=== PATIENT | female | born 1960 | race Caucasian/White ===

== ENCOUNTER → 2017-01-31 | Outpatient (CLI) | payer BC ==
[~2017-01-31] MED LIST: ASPI1TAB83 PO; CETI10TA84 PO; HYDR25TA4 PO; [UNRECOGNIZED DRUG - CODE] PO
--- NOTE | 2017-02-01 13:55 | MAMMOGRAPHY REPORT ---
BILATERAL DIGITAL SCREENING MAMMOGRAM TOMOSYNTHESIS WITH CAD: 01/31/2017 CLINICAL HISTORY: Routine screening. Patient has no complaints. TECHNIQUE: Breast tomosynthesis in addition to standard 2D mammography was performed. Current study was also evaluated with a Computer Aided Detection (CAD) system. COMPARISON: Comparison is made to exams dated: 12/01/2015 mammogram, 11/24/2014 mammogram, 04/14/2014 m ammogram, 09/04/2013 mammogram, 08/27/2013 mammogram, and 02/28/2012 mammogram - [facility]. BREAST COMPOSITION: There are scattered areas of fibroglandular density in both breasts. FINDINGS: There is a stable metallic biopsy marker in the lateral right breast. Regional round and punctate microcalcifications in the right upper outer quadrant appear similar to prior exams. No ne w suspicious mass, architectural distortion or cluster of microcalcifications is seen. IMPRESSION: ACR BI-RADS CATEGORY 1: NEGATIVE There is no mammographic evidence of malignancy. A 1 year screening mammogram is recommended. The p atient will receive written notification of the results. Approximately 10% of breast cancers are not detected with mammography. A negative mammographic repor t should not delay biopsy if a clinically suggestive mass is present. Sunitha Garcia M.D. ay/:01/31/2017 18:02:22 Bisque Finisher: Karen MEYERS)(Clay)(BD), [facility] letter sent: Normal 1/2 BI-RADS Code: ACR BI-RADS Category 1: Negative
== END | disposition home or self-care (01) ==
LOC: C.MAMM 10:03
PROVIDERS: ATTEND Obstetrics & Gynecology
DX: Z12.31 Encounter for screening mammogram for malignant neoplasm of breast (principal)

== ENCOUNTER → 2017-03-01 | Outpatient (CLI) | payer BC | END | disposition home or self-care (01) | LOC: C.PAPS 14:21 | PROVIDERS: ATTEND Obstetrics & Gynecology | DX: Z01.419 Encounter for gynecological examination (general) (routine) without abnormal findings (principal) ==

== ENCOUNTER → 2018-02-05 | Outpatient (CLI) | payer BC ==
--- NOTE | 2018-02-06 07:38 | MAMMOGRAPHY REPORT ---
BILATERAL DIGITAL SCREENING MAMMOGRAM TOMOSYNTHESIS WITH CAD: 02/05/2018 CLINICAL HISTORY: Routine screening. TECHNIQUE: Breast tomosynthesis in addition to standard 2D mammography was performed. Current study was also evaluated with a Computer Aided Detection (CAD) system. COMPARISON: Comparison is made to exams dated: 01/31/2017 mammogram, 12/01/2015 mammogram, 11/24/2014 ma mmogram, 08/27/2013 mammogram, 02/28/2012 mammogram, and 09/21/2009 mammogram - [facility] enter. BREAST COMPOSITION: There are scattered areas of fibroglandular density in both breasts. FINDINGS: There is a stable metallic biopsy marker clip in the 9:00 middle one third of the right sea ast. Stable faint punctate and round microcalcification in the right upper outer quadrant posteriorl y. Stable nodular asymmetry in the inferior left breast. No new suspicious mass, architectural dist ortion or cluster of microcalcifications is seen. IMPRESSION: ACR BI-RADS CATEGORY 1: NEGATIVE There is no mammographic evidence of malignancy. A 1 year screening mammogram is recommended. The pa tient will receive written notification of the results. Approximately 10% of breast cancers are not detected with mammography. A negative mammographic report should not delay biopsy if a clinically suggestive mass is present. Sunitha Garcia M.D. ay/:02/05/2018 16:29:48 Marketing Regional Consultant: Thania MEYERS)(Clay), [facility] letter sent: Normal 1/2 BI-RADS Code: ACR BI-RADS Category 1: Negative
== END | disposition home or self-care (01) ==
LOC: C.MAMM 09:41
PROVIDERS: ATTEND Obstetrics & Gynecology
DX: Z12.31 Encounter for screening mammogram for malignant neoplasm of breast (principal)

== ENCOUNTER 2018-03-02 15:09 | Observation (INO) | payer BC ==
[~2018-03-02] VITALS: Ht 177.8 cm; Wt 100.7 kg
[2018-03-02] MEDS ORDERED: ASPIRIN 81 MG CHEW PO STA (15:22)
[2018-03-02] MEDS ORDERED: NITROGLYCERIN 0.4 MG SL PER TAB CHARGE SL PRN ×2 (15:30→18:15)
[2018-03-02 15:46] LABS: BASO % 0.4 %; BASO ABS # 0.02 K/uL (0-0.2); EOS % 1.9 %; HEMATOCRIT 38.6 % (37-47); HEMOGLOBIN 13.4 g/dL (12.0-16.0); IG# 0.01 K/uL (0.00-0.02); LYMPH % 39.5 %; LYMPH ABS # 2.13 K/uL (1.2-3.4); MEAN CELL VOLUME 91.5 fL (80-100); MEAN CORPUSCULAR HEMOGLOBIN 31.8 pg (25-34); MEAN CORPUSCULAR HGB CONC 34.7 g/dl (32-36); MEAN PLATELET VOLUME 8.6 fL (7.4-10.4); MONO % 7.8 %; MONO ABS # 0.42 K/uL (0.11-0.59); NEUT % 50.2 %; NEUT ABS # 2.71 K/uL (1.4-6.5); PLATELET COUNT 272 K/uL (130-400); RED CELL DISTRIBUTION WIDTH CV 12.4 % (11.5-14.5); RED CELL DISTRIBUTION WIDTH SD 41.4 fL (36.4-46.3); WHITE BLOOD COUNT 5.39 K/uL (4.8-10.8)
--- NOTE | 2018-03-02 15:55 | DIAGNOSTIC IMAGING REPORT ---
CHEST ONE VIEW PORTABLE CLINICAL HISTORY: Atypical chest pain shortness of breath COMPARISON STUDY: 09/25/2015 FINDINGS: The cardiac and mediastinal contours are normal. There is no evidence of focal pulmonary consolidation. There is no evidence of failure. No pleural effusions are visualized.[ There is left shoulder calcific tendinitis. IMPRESSION: No active disease in the chest. Electronically signed by: Hector Mckeon M.D. 03/02/2018 3:54 PM Dictated Date/Time: 03/02/2018 3:53 PM
[2018-03-02 16:12] LABS: BLOOD UREA NITROGEN 18 mg/dl (7-18); CALCIUM 8.9 mg/dl (8.5-10.1); CARBON DIOXIDE 27 mmol/L (21-32); GLUCOSE 94 mg/dl (70-99)
[2018-03-02 16:29] LABS: POTASSIUM 3.9 mmol/L (3.5-5.1); SODIUM 138 mmol/L (136-145)
[2018-03-02] MEDS ORDERED: ASPI81TA28 PO (16:32)
[2018-03-02] MEDS ORDERED: ENOXAPARIN 40 MG/0.4 ML SYR SC SCH (18:15)
[2018-03-02] MEDS ORDERED: ACETAMINOPHEN 325 MG TAB PO PRN (18:15)
[2018-03-02 18:21] VITALS: O2SAT 98
[2018-03-02 18:35] VITALS: BP 118/76; PULSE 59; TEMP 36.6; Ht 177.8 cm; Wt 100.7 kg
--- NOTE | 2018-03-02 18:35 | History and Physical ---
History & Physical Date & Time of Service: March 02, 2018 at 18:33 Chief Complaint: Chest Pain, Sob Primary Care Physician: Ashia Moncada D.OAline History of Present Illness Source: patient, clinic records, hospital records Patient is a 57yo F with a PMH of Kuhef-Lysnztzhz-Zsxmn syndrome (s/p ablation in 2000) and IBS who presents with chest pain beginning this afternoon. Patient states that she was sitting at home when she started to experience sudden, severe 9/10 chest pressure with radiation to the back and jaw. [place] like she could not catch her breath during episode. Denies lightheadedness, near syncope, diaphoresis or nausea. Came to ED for further evaluation, where she was given sublingual nitroglycerin in the ED and chest pain lessened to a 3/ 10. States that she had similar chest pain last Monday while she was picking things up around the house but it resolved spontaneously within a few hours. Denies any history of DE, CAD, diabetes or DVT/PE. Is able to exercise regularly at [employer] without chest discomfort. Endorses a similar event in 2014 and underwent an exercise stress echo, which was negative. Has not followed up with [facility] cardiology since then. + family history of DE (uncle, grandmother). Denies fever, chills, lightheadedness, headache, visual changes, sore throat, abdominal pain, nausea, vomiting, dysuria, diarrhea, constipation or LE swelling. 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 at [facility] Status: Chronic Family History FH: heart disease Social History Smoking Status: Never Smoker Alcohol Use: occasionally (1x/month) Marital Status: Housing status: lives with significant other Occupational Status: employed Immunizations History of Influenza Vaccine: Yes History of Tetanus Vaccine?: Unknown History of Pneumococcal: No History of Hepatitis B Vaccine: Yes Allergies Coded Allergies: Acetaminophen (Unverified Adverse Reaction, Severe, BOTTOMS OUT BLOOD PRESSURE PER PT, 09/25/15) Hydrocodone (Unverified Adverse Reaction, Severe, BOTTOMS OUT BLOOD PRESSURE PER PT, 09/25/15) Oxycodone (Verified Adverse Reaction, Unknown, PROJECTILE VOMITTING - PER PT, 09/25/15) Home Medications Scheduled Aspirin (Aspirin Ec), 81 MG PO DAILY Cetirizine (Zyrtec), 10 MG PO DAILY Review of Systems Ten systems reviewed and negative except as noted in the HPI. Constitutional: + fever Physical Exam Vital Signs Date Time Temp Pulse Resp B/P (MAP) Pulse Ox O2 Delivery O2 Flow Rate FiO2 03/02/18 18:21 60 18 135/90 98 03/02/18 16:24 64 18 127/84 97 Room Air 03/02/18 15:37 73 03/02/18 15:37 67 20 120/86 03/02/18 15:32 66 20 131/96 03/02/18 15:15 97 Room Air 03/02/18 15:10 36.7 73 18 152/100 99 Room Air General Appearance: WD/WN, no apparent distress Head: normocephalic, atraumatic Eyes: normal inspection, PERRL, sclerae normal ENT: normal ENT inspection, hearing grossly normal, pharynx normal Neck: supple, thyroid normal, trachea midline Respiratory/Chest: chest non-tender, lungs clear, normal breath sounds, no respiratory distress, no accessory muscle use Cardiovascular: regular rate, rhythm, no murmur, normal peripheral pulses Abdomen/GI: non tender, soft, no organomegaly Back: normal inspection Extremities/Musculoskelatal: normal inspection, no calf tenderness, no pedal edema, non-tender Neurologic/Psych: no motor/sensory deficits, alert, normal mood/affect, oriented x 3 Skin: normal color, warm/dry Diagnostics Laboratory Results Results Past 24 Hours Test 03/02/18 15:35 03/02/18 16:02 Range/Units White Blood Count 5.39 4.8-10.8 K/uL Red Blood Count 4.22 4.2-5.4 M/uL Hemoglobin 13.4 12.0-16.0 g/dL Hematocrit 38.6 37-47 % Mean Corpuscular Volume 91.5 80-100 fL Mean Corpuscular Hemoglobin 31.8 25-34 pg Mean Corpuscular Hemoglobin Concent 34.7 32-36 g/dl Platelet Count 272 130-400 K/uL Mean Platelet Volume 8.6 7.4-10.4 fL Neutrophils (%) (Auto) 50.2 % Lymphocytes (%) (Auto) 39.5 % Monocytes (%) (Auto) 7.8 % Eosinophils (%) (Auto) 1.9 % Basophils (%) (Auto) 0.4 % Neutrophils # (Auto) 2.71 1.4-6.5 K/uL Lymphocytes # (Auto) 2.13 1.2-3.4 K/uL Monocytes # (Auto) 0.42 0.11-0.59 K/uL Eosinophils # (Auto) 0.10 0-0.5 K/uL Basophils # (Auto) 0.02 0-0.2 K/uL RDW Standard Deviation 41.4 36.4-46.3 fL RDW Coefficient of Variation 12.4 11.5-14.5 % Immature Granulocyte % (Auto) 0.2 % Immature Granulocyte # (Auto) 0.01 0.00-0.02 K/uL Sodium Level 138 136-145 mmol/L Potassium Level 3.9 3.5-5.1 mmol/L Chloride Level 105 98-107 mmol/L Carbon Dioxide Level 27 21-32 mmol/L Anion Gap 6.0 3-11 mmol/L Blood Urea Nitrogen 18 7-18 mg/dl Creatinine 0.80 0.60-1.20 mg/dl Est Creatinine Clear Calc Drug Dose 97.3 ml/min Estimated GFR () 93.5 Estimated GFR (Non- 80.7 BUN/Creatinine Ratio 22.0 10-20 Random Glucose 94 70-99 mg/dl Calcium Level 8.9 8.5-10.1 mg/dl Total Creatine Kinase 111 26-192 U/L Creatine Kinase MB 1.0 0.5-3.6 ng/ml Creatine Kinase MB Ratio 0.9 0-3.0 Troponin I < 0.015 0-0.045 ng/ml D-Dimer 400 0-500 ug/L FEU Diagnostic Radiology CXR: IMPRESSION: No active disease in the chest. EKG Normal sinus rhythm at 68 bpm. Possible Left atrial enlargement. T wave inversion in V2,V3 (previously noted) No change from prior EKG Impression Assessment and Plan Patient is a 57yo F with a PMH of Owbma-Stzjfwlor-Ecuwx syndrome (s/p ablation in 2000) and IBS who presents with chest pain beginning this afternoon. Chest pain: -R/o ACS; risk factors include + family history -Initial troponin negative -EKG- no acute ST changes. T wave inversion in V2, V3 (previously noted in 2015 ) -CXR-no acute process -Trend serial cardiac enzymes -Fasting lipid panel, a1c in AM -Continue baby aspirin -Check resting echo -Repeat EKG in am -[facility] cardiology consulted Allergic rhinitis: -Cont Zyrtec DVT Ppx: SQ Lovenox Code status: FULL PCP: Billie Moncada Dispo: Observation telemetry. Plan to return home once medically stable. Patient seen in collaboration with Dr. Alvarenga. Please see addendum. Agree with above h and p. Briefly 57F with hx of monroe Parkinson diseases s/p ablation presents with chest pain severe in nature radiating to back and jaw which is relieved by nitro in er. Also had chest pain and dizziness few days back which lasted for about 4hrs. Currently resting comfortably and hemodynamically stable. Afebrile. No cough No nausea p/e Ge not in distress Cvs s1 and s2 heard no murmurs Rs cta b/l no added sounds Abd benign [employer] Advisor non focal Ext no edema no erythema. a/p Chest pain rule out ACS initial workup negative risk factors of family history and age monitor in tele echo cardio consult Resuscitation Status VTE Prophylaxis Will order VTE Prophylaxis: Yes
[2018-03-02 18:47] VITALS: BP 118/76; PULSE 60; TEMP 36.6; O2SAT 97
[2018-03-02 19:11] LABS: PTT PATIENT 24.5 SECONDS (21.0-31.0)
--- NOTE | 2018-03-02 19:42 | EMERGENCY ROOM VISIT NOTE ---
History Report prepared by Erick: King Cruz Under the Supervision of: Dr. Henri Santamaria D.O. First contact with patient: 15:12 Chief Complaint: CHEST PAIN Stated Complaint: CHEST PAIN, SOB History of Present Illness The patient is a 57 year old female who presents to the Emergency Room with complaints of constant, severe, chest pressure beginning one hour ago. The patient states she was sitting down when her symptoms began. The patient reports her pressure radiates to her back, and it feels like she cannot catch her breath. She notes she had a similar episode a week ago. The patient states she was picking things up when it started. She reports it lasted four hours and resolved after she laid down. The patient notes it feels like she needs to use the restroom even though she does not need to. She states she exercises regularly and does not experiencing chest pain. The patient denies arm pain, shoulder pain, jaw pain, cough, runny nose, nausea, vomiting, diarrhea, and taking medication for her discomfort. She also denies a history of heart disease , high cholesterol, smoking, diabetes, and issues with her aorta. The patient notes her grandmother had a history of heart disease. Source of History: patient Onset: 1 hour ago Position: chest Symptom Intensity: severe Quality: pressure Timing: constant Associated Symptoms: No nausea, No vomiting, No diarrhea Note: Associated symptoms: chest pressure radiating to her back Denies: arm pain, shoulder pain, jaw pain, runny nose Review of Systems See HPI for pertinent positives & negatives. A total of 10 systems reviewed and were otherwise negative. Past Medical & Surgical Medical Problems: (1) IBS (irritable bowel syndrome) (2) Osteoarthritis (3) Fqeuv-Flqyhfofq-Ueltt pattern Family History FH: heart disease Social History Smoking Status: Never Smoker Alcohol Use: occasionally Marital Status: Housing Status: lives with significant other Occupation Status: employed Current/Historical Medications Scheduled Aspirin (Aspirin Ec), 81 MG PO DAILY Cetirizine (Zyrtec), 10 MG PO DAILY Allergies Coded Allergies: Acetaminophen (Unverified Adverse Reaction, Severe, BOTTOMS OUT BLOOD PRESSURE PER PT, 09/25/15) Hydrocodone (Unverified Adverse Reaction, Severe, BOTTOMS OUT BLOOD PRESSURE PER PT, 09/25/15) Oxycodone (Verified Adverse Reaction, Unknown, PROJECTILE VOMITTING - PER PT, 09/25/15) Physical Exam Vital Signs Date Time Temp Pulse Resp B/P (MAP) Pulse Ox O2 Delivery O2 Flow Rate FiO2 03/02/18 16:24 64 18 127/84 97 Room Air 03/02/18 15:37 73 03/02/18 15:37 67 20 120/86 03/02/18 15:32 66 20 131/96 03/02/18 15:15 97 Room Air 03/02/18 15:10 36.7 73 18 152/100 99 Room Air Physical Exam GENERAL: Sitting up in bed, alert, disheveled, minimal distress, non-toxic EYE EXAM: normal conjunctiva. OROPHARYNX: no exudate, no erythema, lips, buccal mucosa, and tongue normal and mucous membranes are moist NECK: supple, no nuchal rigidity, no adenopathy, non-tender LUNGS: Clear to auscultation. Normal chest wall mechanics HEART: no murmurs, S1 normal and S2 normal ABDOMEN: abdomen soft, non-tender, normo-active bowel sounds, no masses, no rebound or guarding. BACK: Back is symmetrical on inspection and there is no deformity, no midline tenderness, no CVA tenderness. SKIN: no rashes and no bruising UPPER EXTREMITIES: upper extremities are grossly normal. Radial pulses equal bilaterally. LOWER EXTREMITIES: No pitting edema. Calves equal bilaterally. NEURO EXAM: Normal sensorium, cranial nerves II-XII grossly intact, normal speech, no gross weakness of arms, no gross weakness of legs. Medical Decision & Procedures ER Provider Diagnostic Interpretation: Radiology results as stated below per my review and the radiologist's interpretation: CHEST ONE VIEW PORTABLE CLINICAL HISTORY: Atypical chest pain shortness of breath COMPARISON STUDY: 09/25/2015 FINDINGS: The cardiac and mediastinal contours are normal. There is no evidence of focal pulmonary consolidation. There is no evidence of failure. No pleural effusions are visualized.[ There is left shoulder calcific tendinitis. IMPRESSION: No active disease in the chest. Electronically signed by: Hector Mckeon M.D. 03/02/2018 3:54 PM Dictated Date/Time: 03/02/2018 3:53 PM Laboratory Results 03/02/18 15:35 Red Blood Count 4.22, Mean Corpuscular Volume 91.5, Mean Corpuscular Hemoglobin 31.8, Mean Corpuscular Hemoglobin Concent 34.7, Mean Platelet Volume 8.6, Neutrophils (%) (Auto) 50.2, Lymphocytes (%) (Auto) 39.5, Monocytes (%) (Auto) 7.8, Eosinophils (%) (Auto) 1.9, Basophils (%) (Auto) 0.4, Neutrophils # (Auto) 2.71, Lymphocytes # (Auto) 2.13, Monocytes # (Auto) 0.42, Eosinophils # (Auto) 0.10, Basophils # (Auto) 0.02 03/02/18 15:35 Test 03/02/18 15:35 03/02/18 16:02 White Blood Count 5.39 K/uL (4.8-10.8) Red Blood Count 4.22 M/uL (4.2-5.4) Hemoglobin 13.4 g/dL (12.0-16.0) Hematocrit 38.6 % (37-47) Mean Corpuscular Volume 91.5 fL (80-100) Mean Corpuscular Hemoglobin 31.8 pg (25-34) Mean Corpuscular Hemoglobin Concent 34.7 g/dl (32-36) Platelet Count 272 K/uL (130-400) Mean Platelet Volume 8.6 fL (7.4-10.4) Neutrophils (%) (Auto) 50.2 % Lymphocytes (%) (Auto) 39.5 % Monocytes (%) (Auto) 7.8 % Eosinophils (%) (Auto) 1.9 % Basophils (%) (Auto) 0.4 % Neutrophils # (Auto) 2.71 K/uL (1.4-6.5) Lymphocytes # (Auto) 2.13 K/uL (1.2-3.4) Monocytes # (Auto) 0.42 K/uL (0.11-0.59) Eosinophils # (Auto) 0.10 K/uL (0-0.5) Basophils # (Auto) 0.02 K/uL (0-0.2) RDW Standard Deviation 41.4 fL (36.4-46.3) RDW Coefficient of Variation 12.4 % (11.5-14.5) Immature Granulocyte % (Auto) 0.2 % Immature Granulocyte # (Auto) 0.01 K/uL (0.00-0.02) Anion Gap 6.0 mmol/L (3-11) Est Creatinine Clear Calc Drug Dose 97.3 ml/min Estimated GFR () 93.5 Estimated GFR (Non- 80.7 BUN/Creatinine Ratio 22.0 (10-20) Calcium Level 8.9 mg/dl (8.5-10.1) Total Creatine Kinase 111 U/L (26-192) Creatine Kinase MB 1.0 ng/ml (0.5-3.6) Creatine Kinase MB Ratio 0.9 (0-3.0) Troponin I < 0.015 ng/ml (0-0.045) Prothrombin Time 10.0 SECONDS (9.0-12.0) Prothromb Time International Ratio 1.0 (0.9-1.1) Activated Partial Thromboplast Time 24.5 SECONDS (21.0-31.0) Partial Thromboplastin Ratio 0.9 D-Dimer 400 ug/L FEU (0-500) Laboratory results per my review. Medications Administered Medications (Trade) Dose Ordered Sig/Oziel Route Start Time Stop Time Status Last Admin Dose Admin Aspirin (Aspirin Chew) 324 mg NOW STAT PO 03/02/18 15:22 03/02/18 15:24 DC 03/02/18 15:33 324 MG Nitroglycerin (Nitrostat Tab) 0.4 mg Q5M PRN SL 03/02/18 15:30 03/02/18 18:46 DC 03/02/18 15:32 0.4 MG ECG Per My Interpretation Indication: chest pain Rate (beats per minute): 68 Rhythm: sinus rhythm Findings: T-wave inversion (Septal), other (T-wave flattening in the anterior leads. Normal axis.) Comparison ECG Date: 09/25/15 Change: no significant change ED Course ED COURSE: Vital signs were reviewed and showed normal vitals. The patients medical record was reviewed The above diagnostic studies were performed and reviewed. ED treatments and interventions as stated above. 1518: The patient was evaluated in room B03B. A complete history and physical examination was performed. 1522: Ordered Aspirin 324mg PO 1530: Ordered Nitroglycerin 0.4mg SL 1628: I reevaluated the patient. Her chest pain has resolved. I discussed her current test results. 1652: Upon reevaluation, the patient is resting comfortably. I discussed my findings with the patient and she understands and agrees with the treatment plan. 1655: I discussed the patient's case with Consuelo Hudson PA-C, [facility]. The patient will be evaluated for further management and care. Based on the patients age, coexisting illnesses, exam and lab findings the decision to treat as an inpatient was made. The patient remained stable while under my care. The patient will be evaluated for further management. Medical Decision Differential diagnoses includes but is not limited to acute coronary syndrome, myocardial infarction, pericarditis, pulmonary embolus, aortic dissection, pneumonia, pneumothorax, musculoskeletal, shingles, esophageal. Patient is a 57-year-old female who presents the ER for chest pain which started around 1:30 PM today associated with left jaw pain and shortness of breath. Pain was relieved with nitroglycerin in the ER and aspirin. IV was established and CBC along with BMP and troponin was negative. D-dimer was negative. Chest x-ray unremarkable. EKG was unchanged from previous. Patient was pain-free and due to her presentation I recommended observation. She was agreeable. Discussed with hospitalist and she will be observed overnight for further workup. She was admitted chest pain-free. Medication Reconcilliation Current Medication List: was personally reviewed by me Blood Pressure Screening Patient's blood pressure: Normal blood pressure Blood pressure disposition: Did not require urgent referral Consults Time Called: 1646 Consulting Physician: Consuelo Hudson PA-C, [facility] Returned Call: [phone] I discussed the patient's case with Consuelo Hudson PA-C, [facility]. The patient will be evaluated for further management and care. Impression Primary Impression: Precordial chest pain Scribe Attestation The scribe's documentation has been prepared under my direction and personally reviewed by me in its entirety. I confirm that the note above accurately reflects all work, treatment, procedures, and medical decision making performed by me. Departure Information Dispostion Being Evaluated By Hospitalist Referrals Ashia Moncada D.O. (PCP) Patient Instructions My [facility]
[2018-03-02 23:58] VITALS: BP 108/66; PULSE 60; TEMP 36.9; O2SAT 97
[2018-03-03 03:20] VITALS: BP 106/69; PULSE 67; TEMP 36.5; O2SAT 95
[2018-03-03 06:48] LABS: HEMATOCRIT 38.6 % (37-47); HEMOGLOBIN 13.2 g/dL (12.0-16.0); MEAN CELL VOLUME 91.5 fL (80-100); MEAN CORPUSCULAR HEMOGLOBIN 31.3 pg (25-34); MEAN CORPUSCULAR HGB CONC 34.2 g/dl (32-36); MEAN PLATELET VOLUME 8.5 fL (7.4-10.4); PLATELET COUNT 282 K/uL (130-400); RED CELL DISTRIBUTION WIDTH CV 12.2 % (11.5-14.5); RED CELL DISTRIBUTION WIDTH SD 41.3 fL (36.4-46.3); WHITE BLOOD COUNT 4.71 K/uL (4.8-10.8)
[2018-03-03 06:59] VITALS: BP 124/84; PULSE 56; TEMP 36.5; O2SAT 97
[2018-03-03 07:25] LABS: CALCIUM 8.7 mg/dl (8.5-10.1); CREATININE 0.86 mg/dl (0.60-1.20); POTASSIUM 4.1 mmol/L (3.5-5.1)
[2018-03-03] MEDS ORDERED: CETIRIZINE HCL 10 MG TAB PO SCH (09:00)
[2018-03-03] MEDS ORDERED: ASPIRIN 81 MG ECTAB PO SCH (09:00)
--- NOTE | 2018-03-03 09:00 | Progress Note ---
Subjective Date of Service: March 03, 2018. Subjective Pt evaluation today including: conversation w/ patient, physical exam, lab review, review of studies, review of inpatient medication list Saw/examined the patient in room 221 She states that she had chest pain, substernally with radiation to her back and jaw on admission This was her second episode this past week which prompted her to come to the ED Since received SL nitro in the ED, the chest pain has resolved and not recurred Currently, no symptoms and feeling fine. Problem List Medical Problems: (1) Precordial chest pain Status: Acute Review of Systems Constitutional: No weakness Respiratory: No cough, No sputum, No wheezing, No shortness of breath, No dyspnea on exertion, No dyspnea at rest, No hemoptysis Cardiac: No chest pain, No edema, No palpitations Abdomen: No pain, No nausea, No vomiting, No diarrhea, No constipation, No GI bleeding Medications Current Inpatient Medications Medications (Trade) Dose Ordered Sig/Oziel Route Start Time Stop Time Status Last Admin Dose Admin Acetaminophen (Tylenol Tab) 650 mg Q4H PRN PO 03/02/18 18:15 04/01/18 18:14 Nitroglycerin (Nitrostat Tab) 0.4 mg UD PRN SL 03/02/18 18:15 04/01/18 18:14 Aspirin (Ecotrin Tab) 81 mg DAILY PO 03/03/18 09:00 04/02/18 08:59 Cetirizine HCl (zyrTEC TAB) 10 mg DAILY PO 03/03/18 09:00 04/02/18 08:59 Enoxaparin Sodium (Lovenox Inj) 40 mg Q24H SC 03/03/18 18:15 04/01/18 18:14 Objective Vital Signs Date Time Temp Pulse Resp B/P (MAP) Pulse Ox O2 Delivery O2 Flow Rate FiO2 03/03/18 06:59 36.5 56 18 124/84 (97) 97 Room Air 03/03/18 03:20 36.5 67 18 106/69 (81) 95 Room Air 03/03/18 00:26 Room Air 03/02/18 23:58 36.9 60 17 108/66 (80) 97 Room Air 03/02/18 18:47 36.6 60 18 118/76 (90) 97 Room Air 03/02/18 18:35 36.6 59 18 118/76 Room Air 03/02/18 18:21 60 18 135/90 98 03/02/18 16:24 64 18 127/84 97 Room Air 03/02/18 15:37 73 03/02/18 15:37 67 20 120/86 03/02/18 15:32 66 20 131/96 03/02/18 15:15 97 Room Air 03/02/18 15:10 36.7 73 18 152/100 99 Room Air Physical Exam General Appearance: no apparent distress Respiratory/Chest: chest non-tender, lungs clear, normal breath sounds, no respiratory distress, no accessory muscle use Cardiovascular: regular rate, rhythm, no edema, no gallop, no JVD, no murmur Abdomen: normal bowel sounds, non tender, soft Extremities: normal range of motion, non-tender, normal inspection, no pedal edema, no calf tenderness Neurologic/Psychiatric: no motor/sensory deficits, alert, normal mood/affect Skin: normal color, warm/dry, no rash Lymphatic: no adenopathy Laboratory Results Last 24 Hours Test 03/02/18 15:35 03/02/18 16:02 03/03/18 06:27 White Blood Count 5.39 K/uL 4.71 K/uL Red Blood Count 4.22 M/uL 4.22 M/uL Hemoglobin 13.4 g/dL 13.2 g/dL Hematocrit 38.6 % 38.6 % Mean Corpuscular Volume 91.5 fL 91.5 fL Mean Corpuscular Hemoglobin 31.8 pg 31.3 pg Mean Corpuscular Hemoglobin Concent 34.7 g/dl 34.2 g/dl Platelet Count 272 K/uL 282 K/uL Mean Platelet Volume 8.6 fL 8.5 fL Neutrophils (%) (Auto) 50.2 % Lymphocytes (%) (Auto) 39.5 % Monocytes (%) (Auto) 7.8 % Eosinophils (%) (Auto) 1.9 % Basophils (%) (Auto) 0.4 % Neutrophils # (Auto) 2.71 K/uL Lymphocytes # (Auto) 2.13 K/uL Monocytes # (Auto) 0.42 K/uL Eosinophils # (Auto) 0.10 K/uL Basophils # (Auto) 0.02 K/uL RDW Standard Deviation 41.4 fL 41.3 fL RDW Coefficient of Variation 12.4 % 12.2 % Immature Granulocyte % (Auto) 0.2 % Immature Granulocyte # (Auto) 0.01 K/uL Sodium Level 138 mmol/L 139 mmol/L Potassium Level 3.9 mmol/L 4.1 mmol/L Chloride Level 105 mmol/L 107 mmol/L Carbon Dioxide Level 27 mmol/L 26 mmol/L Anion Gap 6.0 mmol/L 6.0 mmol/L Blood Urea Nitrogen 18 mg/dl 16 mg/dl Creatinine 0.80 mg/dl 0.86 mg/dl Est Creatinine Clear Calc Drug Dose 97.3 ml/min 90.5 ml/min Estimated GFR () 93.5 85.7 Estimated GFR (Non- 80.7 73.9 BUN/Creatinine Ratio 22.0 18.3 Random Glucose 94 mg/dl 91 mg/dl Calcium Level 8.9 mg/dl 8.7 mg/dl Total Creatine Kinase 111 U/L Creatine Kinase MB 1.0 ng/ml Creatine Kinase MB Ratio 0.9 Troponin I < 0.015 ng/ml Prothrombin Time 10.0 SECONDS Prothromb Time International Ratio 1.0 Activated Partial Thromboplast Time 24.5 SECONDS Partial Thromboplastin Ratio 0.9 D-Dimer 400 ug/L FEU Triglycerides Level 112 mg/dl Cholesterol Level 250 mg/dl HDL Cholesterol 66 mg/dl LDL Cholesterol, Calculated 162 mg/dl VLDL Cholesterol, Calculated 22 mg/dl Cholesterol/HDL Ratio 3.8 Assessment and Plan This is a 57 year old female with a past medical history of Caren-Parkinson- White syndrome s/p ablation, allergic rhinitis, IBS - presents with chest pain Chest Pain r/o ACS - patient with substernal chest pain, radiating to back/jaw - cardiac enzymes negative x2 thus far, EKG with no ST-T wave changes - echo is pending - cardiology consultation pending - has had stress test in the past (2014), which was negative DVT ppx - Lovenox FULL CODE
[2018-03-03 11:35] VITALS: BP 109/68; PULSE 58; TEMP 37.1; O2SAT 98
--- NOTE | 2018-03-03 12:05 | Cardiology Consultation ---
Cardiology Consultation Date of Consultation: March 03, 2018. 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 She has had no recurrence but occasionally describes a "skipped heartbeat". She presented in September 2015 at which time she was having recurrent episodes of substernal chest discomfort with radiation to the neck and her jaw. She had T-wave inversion in the precordial leads but her cardiac enzymes were negative and a stress echo was performed on September 26, 2015. She exercised for 5 minutes on the Son protocol achieving 93% of her predicted maximal heart rate and without chest discomfort. The echo images were negative for ischemia. She had no recurrence until last week. Last week and the day of her presentation here this admission she had substernal chest pressure with radiation to her neck and jaw. 1 week ago it lasted about 4 hours, she thinks it lasted several hours this admission and gradually subsided after receiving nitroglycerin. She had no lightheadedness or dizziness or palpitations with it. She was not short of breath. She spent the winter in [facility] [place] and was hiking and exerting herself fairly strenuously and had no substernal chest discomfort. So far her enzymes have been negative (2 sets) and her electrocardiogram is unchanged from before. She has had no recurrence of her symptoms. Past Medical/Surgical History (1) Xvhqb-Pzuchxvjf-Nxcuj pattern (2) Osteoarthritis (3) IBS (irritable bowel syndrome) Family History FH: heart disease Social History Smoking Status: Never Smoker History of Alcohol Use: Yes (once a month) Review of Systems Constitutional: No fever, No weight loss, No weakness Respiratory: No cough, No sputum, No wheezing, No shortness of breath, No dyspnea on exertion, No dyspnea at rest, No hemoptysis Cardiac: + see HPI, + chest pain, No edema, No palpitations Abdomen: No pain, No nausea, No vomiting, No diarrhea, No GI bleeding Female : No problem reported Neurologic: No paralysis, No weakness, No numbness/tingling, No balance problems Heme: No abnormal bleeding/bruising, No clotting problems Endo: No fatigue Skin: No problem reported All Other Systems: Reviewed and Negative Allergies Coded Allergies: Acetaminophen (Unverified Adverse Reaction, Severe, BOTTOMS OUT BLOOD PRESSURE PER PT, 09/25/15) Hydrocodone (Unverified Adverse Reaction, Severe, BOTTOMS OUT BLOOD PRESSURE PER PT, 09/25/15) Oxycodone (Verified Adverse Reaction, Unknown, PROJECTILE VOMITTING - PER PT, 09/25/15) Medications Current Inpatient Medications Medications (Trade) Dose Ordered Sig/Oziel Route Start Time Stop Time Status Last Admin Dose Admin Acetaminophen (Tylenol Tab) 650 mg Q4H PRN PO 03/02/18 18:15 04/01/18 18:14 Nitroglycerin (Nitrostat Tab) 0.4 mg UD PRN SL 03/02/18 18:15 04/01/18 18:14 Aspirin (Ecotrin Tab) 81 mg DAILY PO 03/03/18 09:00 04/02/18 08:59 Cetirizine HCl (zyrTEC TAB) 10 mg DAILY PO 03/03/18 09:00 04/02/18 08:59 Enoxaparin Sodium (Lovenox Inj) 40 mg Q24H SC 03/03/18 18:15 04/01/18 18:14 Physical Exam Vital Signs Past 12 Hours Date Time Temp Pulse Resp B/P (MAP) Pulse Ox O2 Delivery O2 Flow Rate FiO2 03/03/18 11:35 37.1 58 20 109/68 (82) 98 Room Air 03/03/18 06:59 36.5 56 18 124/84 (97) 97 Room Air 03/03/18 03:20 36.5 67 18 106/69 (81) 95 Room Air 03/03/18 00:26 Room Air Constitutional: General Apperance: heathly-appearing Level of Distress: NAD Psychiatric: Mental Status: active & alert Head: normocephalic Eyes: EOM: EOMI ENMT: normal ENT inspection, hearing grossly normal Neck: supple, no masses Lungs: Respiratory effort: no dyspnea, good air movement Auscultation: breath sounds normal, no wheezing Cardiovascular: Heart Auscultation: RRR, no murmurs, no rubs, no gallops Peripheral Pulses: Bruits: none appreciated Abdomen: Bowel Sounds: normal Inspection & Palpation: soft, no tenderness, guarding & rebound, no masses Musculoskeletal: normal strength (5/5 throughout) Extremities: no edema Neurologic: Cranial Nerves: grossly intact Sensation: grossly intact Data Laboratory Results: Last 24 Hours Test 03/02/18 15:35 03/02/18 16:02 03/03/18 06:27 White Blood Count 5.39 K/uL 4.71 K/uL Red Blood Count 4.22 M/uL 4.22 M/uL Hemoglobin 13.4 g/dL 13.2 g/dL Hematocrit 38.6 % 38.6 % Mean Corpuscular Volume 91.5 fL 91.5 fL Mean Corpuscular Hemoglobin 31.8 pg 31.3 pg Mean Corpuscular Hemoglobin Concent 34.7 g/dl 34.2 g/dl Platelet Count 272 K/uL 282 K/uL Mean Platelet Volume 8.6 fL 8.5 fL Neutrophils (%) (Auto) 50.2 % Lymphocytes (%) (Auto) 39.5 % Monocytes (%) (Auto) 7.8 % Eosinophils (%) (Auto) 1.9 % Basophils (%) (Auto) 0.4 % Neutrophils # (Auto) 2.71 K/uL Lymphocytes # (Auto) 2.13 K/uL Monocytes # (Auto) 0.42 K/uL Eosinophils # (Auto) 0.10 K/uL Basophils # (Auto) 0.02 K/uL RDW Standard Deviation 41.4 fL 41.3 fL RDW Coefficient of Variation 12.4 % 12.2 % Immature Granulocyte % (Auto) 0.2 % Immature Granulocyte # (Auto) 0.01 K/uL Sodium Level 138 mmol/L 139 mmol/L Potassium Level 3.9 mmol/L 4.1 mmol/L Chloride Level 105 mmol/L 107 mmol/L Carbon Dioxide Level 27 mmol/L 26 mmol/L Anion Gap 6.0 mmol/L 6.0 mmol/L Blood Urea Nitrogen 18 mg/dl 16 mg/dl Creatinine 0.80 mg/dl 0.86 mg/dl Est Creatinine Clear Calc Drug Dose 97.3 ml/min 90.5 ml/min Estimated GFR () 93.5 85.7 Estimated GFR (Non- 80.7 73.9 BUN/Creatinine Ratio 22.0 18.3 Random Glucose 94 mg/dl 91 mg/dl Calcium Level 8.9 mg/dl 8.7 mg/dl Total Creatine Kinase 111 U/L Creatine Kinase MB 1.0 ng/ml Creatine Kinase MB Ratio 0.9 Troponin I < 0.015 ng/ml < 0.015 ng/ml Prothrombin Time 10.0 SECONDS Prothromb Time International Ratio 1.0 Activated Partial Thromboplast Time 24.5 SECONDS Partial Thromboplastin Ratio 0.9 D-Dimer 400 ug/L FEU Triglycerides Level 112 mg/dl Cholesterol Level 250 mg/dl HDL Cholesterol 66 mg/dl LDL Cholesterol, Calculated 162 mg/dl VLDL Cholesterol, Calculated 22 mg/dl Cholesterol/HDL Ratio 3.8 Imaging: Echocardiogram was performed and results are pending EKG: Electrocardiogram shows sinus rhythm with T-wave inversion V1 and V2, this can be normal and this is similar to prior electrocardiograms Telemetry reviewed: Sinus rhythm, no significant arrhythmia Assessment & Plan 1. Chest discomfort: I doubt very much that her chest discomfort is cardiac despite the fact that the description is consistent with angina. The duration was quite long to not have any electrocardiographic or enzyme findings, she is very active and was hiking over the winter and had no exertional symptoms even at altitude. She has had negative stress echo in the past for similar symptoms. I would continue for the 3 sets of enzymes, and make sure the echo does not show wall motion abnormalities however I would not recommend any further evaluation if these things are negative. I do not think I would do another stress test unless the symptoms become exertional. I would consider other etiologies, such as esophageal spasm, etc. if the symptoms continue. 2. WPW: She has a history of WPW and ablation, her electric cardiogram does not show preexcitation and she does not have any symptoms to suggest recurrent SVT. She describes skipped heartbeats which are probably premature beats and are not bothersome to her. Thank you for allowing me to participate in her care.
--- NOTE | 2018-03-03 13:30 | ECHOCARDIOGRAM REPORT ---
*NOTICE TO RECEIVING CONSTITUTION PARTY AGENCY This information is strictly Confidential and protected under [place] law. [place] law prohibits you from making any further disclosure of this information unless further disclosure is expressly permitted by the written consent of the person to whom it pertains or is authorized by law. A general authorization for the release of medical or other information is not sufficient for this purpose. Hospital accepts no responsibility if the information is made available to any other person, INCLUDING THE PATIENT. Interpretation Summary * Name: ALCIDES WHEAT Study Date: 03/03/2018 07:27 AM BP: 106/69 mmHg * Patient Location: 221 HR: 56 * : 1960 (M/d/yyyy) Gender: Female Height: 70 in * Age: 57 yrs Ethnicity: CA Weight: 222 lb * Referring Physician: Eleni Bell PA-C * Performed By: Edu Salgado RDCS * * Reason For Study: Chest pain * BSA: 2.2 m2 * The study was technically adequate. * -- Conclusions -- * No regional wall motion abnormalities noted. * Left ventricular systolic function is normal. * The LV Ejection Fraction = 55-60%. * The right ventricle is normal in size and function. * Trace aortic valve regurgitation is present. Procedure Details * A complete two-dimensional transthoracic echocardiogram was performed (2D, M-mode, Doppler and color flow Doppler). * The study was technically adequate. Left Ventricle * The left ventricle is normal in size. * There is normal left ventricular wall thickness. * Left ventricular systolic function is normal. * Ejection Fraction = 55-60%. * The left ventricular wall motion is normal. * No regional wall motion abnormalities noted. Right Ventricle * The right ventricle is normal in size and function. * The right ventricular systolic function is normal as assessed by tricuspid annular plane systolic excursion (TAPSE) (normal >1.5 cm). Atria * The left atrial size is normal. * Right atrial size is normal. * There is no evidence of atrial septal defect, but resolution does not allow assessment for a patent foramen ovale. Mitral Valve * The mitral valve is normal. * There is no mitral valve stenosis. * Significant mitral regurgitation is absent. Tricuspid Valve * The tricuspid valve is normal. * There is no tricuspid stenosis. * Significant tricuspid regurgitation is absent. Aortic Valve * The aortic valve is trileaflet. * Aortic stenosis is absent. * Trace aortic regurgitation. Pulmonic Valve * The pulmonary valve is not well seen, but the Doppler examination is normal without significant regurgitation or stenosis. Great Vessels * The aortic root and proximal ascending aorta are normal sized. Pericardium/Pleural * There is no pericardial effusion. Great Vessels * Normal inferior vena cava diameter and respiratory variation suggests normal central venous pressure. Left Ventricular Diastolic Function * Left ventricular diastolic function is normal. MMode 2D Measurements and Calculations IVSd 1.0 cm IVSs 1.7 cm LVIDd 5.2 cm LVIDs 2.9 cm LVPWd 1.0 cm LVPWs 1.6 cm IVS/LVPW 1.0 FS 44.1 % EDV(Teich) 132.1 ml ESV(Teich) 33.1 ml EF(Teich) 74.9 % EDV(cubed) 144.2 ml ESV(cubed) 25.2 ml EF(cubed) 82.5 % % IVS thick 61.8 % % LVPW thick 57.1 % LV mass(C)d 205.3 grams LV mass(C)dI 94.1 grams/m\S\2 LV mass(C)s 180.1 grams LV mass(C)sI 82.6 grams/m\S\2 SV(Teich) 99.0 ml SI(Teich) 45.4 ml/m\S\2 SV(cubed) 119.0 ml SI(cubed) 54.5 ml/m\S\2 Ao root diam 3.2 cm Ao root area 7.9 cm\S\2 ACS 2.1 cm LA dimension 3.7 cm asc Aorta Diam 3.2 cm LA/Ao 1.2 LVOT diam 1.9 cm LVOT area 3.0 cm\S\2 LVAd ap4 24.7 cm\S\2 LVLd ap4 7.6 cm EDV(MOD-sp4) 65.4 ml EDV(sp4-el) 68.1 ml LVAs ap4 11.8 cm\S\2 LVLs ap4 6.2 cm ESV(MOD-sp4) 19.2 ml ESV(sp4-el) 19.1 ml EF(MOD-sp4) 70.7 % EF(sp4-el) 72.0 % LVAd ap2 31.4 cm\S\2 LVLd ap2 8.3 cm EDV(MOD-sp2) 103.1 ml EDV(sp2-el) 100.5 ml LVAs ap2 15.1 cm\S\2 LVLs ap2 6.2 cm ESV(MOD-sp2) 31.2 ml ESV(sp2-el) 31.1 ml EF(MOD-sp2) 69.7 % EF(sp2-el) 69.1 % LVLd %diff 8.1 % EDV(MOD-bp) 84.3 ml LVLs %diff 0.57 % ESV(MOD-bp) 24.0 ml EF(MOD-bp) 71.5 % SV(MOD-sp4) 46.2 ml SI(MOD-sp4) 21.2 ml/m\S\2 SV(MOD-sp2) 71.9 ml SI(MOD-sp2) 33.0 ml/m\S\2 SV(MOD-bp) 60.3 ml SI(MOD-bp) 27.6 ml/m\S\2 SV(sp4-el) 49.0 ml SI(sp4-el) 22.4 ml/m\S\2 SV(sp2-el) 69.4 ml SI(sp2-el) 31.8 ml/m\S\2 Doppler Measurements and Calculations MV E max heriberto 76.6 cm/sec MV A max heriberto 65.2 cm/sec MV E/A 1.2 MV dec time 0.22 sec Ao V2 max 124.2 cm/sec Ao max PG 6.2 mmHg Ao max PG (full) 1.3 mmHg FRIDA(V,A) 2.6 cm\S\2 FRIDA(V,D) 2.6 cm\S\2 AI max heriberto 398.6 cm/sec AI max PG 63.6 mmHg AI dec slope 126.4 cm/sec\S\2 AI P1/2t 923.6 msec LV V1 max PG 4.9 mmHg LV V1 max 110.3 cm/sec PA V2 max 80.2 cm/sec PA max PG 2.6 mmHg
--- NOTE | 2018-03-03 13:59 | Discharge Instructions ---
Discharge Instructions Date of Service March 03, 2018. Admission Reason for Admission: Chest Pain Discharge Discharge Diagnosis / Problem: Chest Pain, likely Musculoskeletal Discharge Goals Goal(s): Decrease discomfort, Improve function, Diagnostic testing, Therapeutic intervention Activity Recommendations Activity Limitations: resume your previous activity . Instructions / Follow-Up Instructions / Follow-Up Please follow-up with Dr. Ashia Moncada on March 08 at 10:15AM * Your chest pain was likely not cardiac related as the cardiac enzymes, echocardiogram and electrocardiogram all pointed away from a cardiac origin * More likely, this was related to musculoskeletal pain/strain Current Hospital Diet Patient's current hospital diet: AHA Diet (Heart Healthy) Discharge Diet Recommended Diet: AHA Diet (Heart Healthy) Pending Studies Studies pending at discharge: no Laboratory Results Lipid Panel Test 03/03/18 06:27 Range/Units Triglycerides Level 112 0-150 mg/dl Cholesterol Level 250 H 0-200 mg/dl HDL Cholesterol 66 mg/dl Cholesterol/HDL Ratio 3.8 LDL Cholesterol, Calculated 162 mg/dl Medical Emergencies . Who to Call and When: Medical Emergencies: If at any time you feel your situation is an emergency, please call 911 immediately. . Non-Emergent Contact Non-Emergency issues call your: Primary Care Provider . . "Provider Documentation" section prepared by Yahir Melgar. .
--- NOTE | 2018-03-03 14:01 | Discharge Summary ---
Discharge Summary Date of Service March 03, 2018. Discharge Summary Admission Date: March 02, 2018 at 17:38 Discharge Date: March 03, 2018 Discharge Disposition: Home Principal Diagnosis: Chest Pain not likely ACS Medication Reconciliation Continued Medications: Aspirin (Aspirin Ec) 81 Mg Tab 81 MG PO DAILY Cetirizine (Zyrtec) 10 Mg Tab 10 MG PO DAILY, TAB Admission Information HPI (per Admitting provider): Patient is a 57yo F with a PMH of Fxlwv-Dddviktho-Mknho syndrome (s/p ablation in 2000) and IBS who presents with chest pain beginning this afternoon. Patient states that she was sitting at home when she started to experience sudden, severe 9/10 chest pressure with radiation to the back and jaw. [place] like she could not catch her breath during episode. Denies lightheadedness, near syncope, diaphoresis or nausea. Came to ED for further evaluation, where she was given sublingual nitroglycerin in the ED and chest pain lessened to a 3/ 10. States that she had similar chest pain last Monday while she was picking things up around the house but it resolved spontaneously within a few hours. Denies any history of PA, CAD, diabetes or DVT/PE. Is able to exercise regularly at [employer] without chest discomfort. Endorses a similar event in 2014 and underwent an exercise stress echo, which was negative. Has not followed up with [facility] cardiology since then. + family history of PA (uncle, grandmother). Denies fever, chills, lightheadedness, headache, visual changes, sore throat, abdominal pain, nausea, vomiting, dysuria, diarrhea, constipation or LE swelling. Physical Exam (per Admitting): General Appearance: WD/WN, no apparent distress Head: normocephalic, atraumatic Eyes: normal inspection, PERRL, sclerae normal ENT: normal ENT inspection, hearing grossly normal, pharynx normal Neck: supple, thyroid normal, trachea midline Respiratory/Chest: chest non-tender, lungs clear, normal breath sounds, no respiratory distress, no accessory muscle use Cardiovascular: regular rate, rhythm, no murmur, normal peripheral pulses Abdomen/GI: non tender, soft, no organomegaly Back: normal inspection Extremities/Musculoskelatal: normal inspection, no calf tenderness, no pedal edema, non-tender Neurologic/Psych: no motor/sensory deficits, alert, normal mood/affect, oriented x 3 Skin: normal color, warm/dry Hospital Course This is a 57 year old female with a past medical history of Caren-Parkinson- White syndrome s/p ablation, allergic rhinitis, IBS - presents with chest pain Chest Pain r/o ACS - patient with substernal chest pain, radiating to back/jaw - cardiac enzymes negative x2 thus far, EKG with no ST-T wave changes - echo is pending - cardiology consultation pending - has had stress test in the past (2014), which was negative DVT ppx - Lovenox FULL CODE Total time spent on discharge = 20 minutes This includes examination of the patient, discharge planning, medication reconciliation, and communication with other providers. Discharge Instructions Please follow-up with Dr. Ashia Moncada on March 08 at 10:15AM * Your chest pain was likely not cardiac related as the cardiac enzymes, echocardiogram and electrocardiogram all pointed away from a cardiac origin * More likely, this was related to musculoskeletal pain/strain
[2018-03-03 14:11] VITALS: BP 109/68; PULSE 58; TEMP 37.1; O2SAT 98
[2018-03-03] MEDS ORDERED: ENOXAPARIN 40 MG/0.4 ML SYR SC SCH ×2 (18:15)
== END 2018-03-03 15:13 | disposition home or self-care (01) ==
LOC: C.EDB 15:09 → C.2T 17:38 → ENRESERV 17:43
PROVIDERS: ADMIT Internal Medicine; ATTEND Family Medicine
DX: R07.9 Chest pain, unspecified (principal); J30.9 Allergic rhinitis, unspecified; K58.9 Irritable bowel syndrome, unspecified; Z86.79 Personal history of other diseases of the circulatory system; Z82.49 Family history of ischemic heart disease and other diseases of the circulatory system; Z88.8 Allergy status to other drugs, medicaments and biological substances; Z88.5 Allergy status to narcotic agent

== ENCOUNTER → 2018-03-05 | Outpatient (CLI) | payer BC ==
[~2018-03-05] MED LIST changes: -ASPI1TAB83 PO; +ASPI81TA28 PO; -HYDR25TA4 PO; -[UNRECOGNIZED DRUG - CODE] PO
== END | disposition home or self-care (01) ==
LOC: C.PAPS 13:16
PROVIDERS: ATTEND Obstetrics & Gynecology
DX: Z01.419 Encounter for gynecological examination (general) (routine) without abnormal findings (principal); Z11.51 Encounter for screening for human papillomavirus (HPV)